=== PATIENT | female | born 1955 | race Caucasian/White ===

== ENCOUNTER → 2016-07-13 | Outpatient (CLI) | payer OTHER ==
--- NOTE | 2016-07-13 14:47 | RAD ---
DATE: 07/13/2016 EXAM: DIGITAL DIAGNOSTIC LT HISTORY: Follow-up COMPARISON: 09/04/2015 This study was interpreted with the benefit of Computerized Aided Detection (CAD). FINDINGS: The breast parenchyma shows scattered fibroglandular densities. Breast parenchyma level B. Density on the MLO view in the inferior aspect of the left breast is unchanged. IMPRESSION: Benign findings. Follow-up bilateral mammography suggested in August of this year BI-RADS CATEGORY: 2 BENIGN FINDING(S) RECOMMENDED FOLLOW-UP: 3M 3 MONTH FOLLOW-UP PQRS compliance statement: Patient information was entered into a reminder system with a target due date September 13, 2016 bilateral mammography for the next mammogram. Mammography is a sensitive method for finding small breast cancers, but it does not detect them all and is not a substitute for careful clinical examination. A negative mammogram does not negate a clinically suspicious finding and should not result in delay in biopsying a clinically suspicious abnormality. "Our facility is accredited by the [employer] Mammography [employer]."
== END | disposition home or self-care (01) ==
LOC: MAMMO 10:03
DX: R92.8 Other abnormal and inconclusive findings on diagnostic imaging of breast (principal)
CPT/HCPCS: G0206; 77065

== ENCOUNTER 2016-08-25 19:56 | Emergency (ER) | payer OTHER ==
[~2016-08-25] VITALS: Ht 175.3 cm; Wt 85.3 kg
--- NOTE | 2016-08-25 20:02 | ED.ADGEN ---
Adult General Chief Complaint Chief Complaint Burn to forearm [facility] HPI Patient is a 61 year old female who presents with a burn to her left forearm. She was making chicken and taken out of the oven and some of the juice splashed onto her left forearm. She states she ran cold water over it and put some ice on it and came to the ER. She states her tetanus shot was approximately 2 years ago. She states that it doesn't hurt that bad right now there is just a burning sensation. Review of Systems Review of Systems Constitutional: Denies fever or chills [] Eyes: Denies change in visual acuity, redness, or eye pain [] HENT: Denies nasal congestion or sore throat [] Respiratory: Denies cough or shortness of breath [] Cardiovascular: No additional information not addressed in HPI [] GI: Denies abdominal pain, nausea, vomiting, bloody stools or diarrhea [] : Denies dysuria or hematuria [] Musculoskeletal: Denies back pain or joint pain [] Integument: Denies rash or skin lesions, positive for burn to left forearm Neurologic: Denies headache, focal weakness or sensory changes [] Endocrine: Denies polyuria or polydipsia [] Allergies Allergies Allergies Coded Allergies Type Severity Reaction Last Updated Verified codeine Allergy Intermediate Vomiting 08/25/16 Yes Physical Exam Physical Exam Constitutional: Well developed, well nourished, no acute distress, non-toxic appearance. [] HENT: Normocephalic, atraumatic, bilateral external ears normal, oropharynx moist, no oral exudates, nose normal. [] Eyes: PERRLA, EOMI, conjunctiva normal, no discharge. [] Neck: Normal range of motion, no tenderness, supple, no stridor. [] Cardiovascular:Heart rate regular rhythm, no murmur [] Lungs & Thorax: Bilateral breath sounds clear to auscultation [] Abdomen: Bowel sounds normal, soft, no tenderness, no masses, no pulsatile masses. [] Skin: Warm, dry, no erythema, no rash. 8 x 5 cm burn with epithelium missing on left forearm on the palm side, it is approximately 3 cm distal to the elbow and 5 cm proximal to the wrist. It does not cross any joint lines. Back: No tenderness, no CVA tenderness. [] Extremities: No tenderness, no cyanosis, no clubbing, ROM intact, no edema. [] Neurologic: Alert and oriented X 3, normal motor function, normal sensory function, no focal deficits noted. [] Psychologic: Affect normal, judgement normal, mood normal. [] Current Patient Data Vital Signs Vital Signs Date Time Temp Pulse Resp B/P (MAP) Pulse Ox O2 Delivery O2 Flow Rate FiO2 08/25/16 20:06 97.7 84 20 97 Room Air EKG EKG [] Radiology/Procedures Radiology/Procedures [] Course & Med Decision Making Course & Med Decision Making Pertinent Labs and Imaging studies reviewed. (See chart for details) Her tetanus is up-to-date. I spoke with the [facility] Pamela , who recommends his bacitracin and with Xeroform gauze and then 4 x 4's on top of that. She states to put bacitracin directly on the Xeroform gauze. She states that she can follow-up with the [facility] burn clinic on Monday 8:45 in the morning. I gave the burn unit the patient's telephone number and also the patient the burn centers telephone number. Patient is instructed to keep an eye on the dressings and if it becomes inflamed, swollen, red or erythematous return back to ER. She's being discharged in stable condition this time with [place]. Her tetanus is up-to-date. Final Impression Final Impression 1% surface area burn of the left forearm Problems: Dragon Disclaimer Dragon Disclaimer This electronic medical record was generated, in whole or in part, using a voice recognition dictation system. KENDALL CAGLE MD Aug 25, 2016 20:02
[2016-08-25 20:06] VITALS: BP 143/93
[2016-08-25] MEDS ORDERED: HYDR-971 PO (20:49)
[2016-08-25] MEDS ORDERED: START PACK - traMADol 1 STARTPACK TABLET PO ONE (21:15)
== END 2016-08-25 21:02 | disposition home or self-care (01) ==
LOC: ER 19:56
DX: T22.012A Burn of unspecified degree of left forearm, initial encounter (principal); T31.0 Burns involving less than 10% of body surface; Z88.6 Allergy status to analgesic agent; X10.2XXA Contact with fats and cooking oils, initial encounter; Y93.G3 Activity, cooking and baking; Y99.8 Other external cause status; Y92.89 Other specified places as the place of occurrence of the external cause
CPT/HCPCS: 16020; 99284-25

== ENCOUNTER → 2018-04-23 | Outpatient (CLI) | payer OTHER ==
[~2018-04-23] MED LIST: HYDR-3165 PO
--- NOTE | 2018-04-23 13:54 | RAD ---
EXAM: Bilateral wrists, 3 views; bilateral knees, standing view; bilateral hands, 3 views; bilateral ankles, 3 views. HISTORY: Arthritis COMPARISON: None. FINDINGS: Bilateral hands and wrists: 3 views of both hands and wrists are obtained. There is minimal benign osseous excrescence along the radial aspect of the right distal radial metaphysis. There is no fracture, dislocation or subluxation. The alignment and joint spaces are unremarkable. Bilateral knees: A frontal view of both knees obtained. There is right medial compartment joint space narrowing with subchondral sclerosis. There is minimal bilateral medial and lateral compartment spurring. Bilateral ankles: 3 views of both ankles are obtained. There is no fracture, dislocation or subluxation. No osteochondral lesion is seen. There are small bilateral plantar spurs. There is enthesopathy at the bilateral Achilles tendon insertions. IMPRESSION: 1. 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 2. Small bilateral plantar spurs. 3. No acute osseous finding. Electronically signed by: Annetta Jones MD (04/23/2018 1:49 PM) [facility]
== END | disposition home or self-care (01) ==
LOC: DXRAD 12:19
PROVIDERS: ATTEND Family Medicine
DX: M17.0 Bilateral primary osteoarthritis of knee (principal); M77.52 Other enthesopathy of left foot and ankle; M77.51 Other enthesopathy of right foot and ankle; M76.892 Other specified enthesopathies of left lower limb, excluding foot; M76.891 Other specified enthesopathies of right lower limb, excluding foot; D16.11 Benign neoplasm of short bones of right upper limb
CPT/HCPCS: 73110; 73130; 73565; 73610

== ENCOUNTER → 2018-06-11 | Outpatient (CLI) | payer OTHER ==
--- NOTE | 2018-06-11 15:48 | RAD ---
DATE: 06/11/2018 EXAM: Bilateral screening mammogram. HISTORY: Routine screening COMPARISON: Previous mammogram from 2017 and 2016 This study was interpreted with the benefit of Computerized Aided Detection (CAD). FINDINGS: Breast density category C: The breasts are heterogeneously dense which may obscure small masses. The skin and nipples are within normal limits. No suspicious calcifications, spiculated mass or area of architectural distortion. IMPRESSION: Benign findings. Continue annual screening. BI-RADS CATEGORY: 2 BENIGN FINDING(S) RECOMMENDED FOLLOW-UP: 12M 12 MONTH FOLLOW-UP Mammography is a sensitive method for finding small breast cancers, but it does not detect them all and is not a substitute for careful clinical examination. A negative mammogram does not negate a clinically suspicious finding and should not result in delay in biopsying a clinically suspicious abnormality. "Our facility is accredited by the [employer] Mammography Program."
== END | disposition home or self-care (01) ==
LOC: MAMMO 14:58
PROVIDERS: ATTEND Family Medicine
DX: Z12.31 Encounter for screening mammogram for malignant neoplasm of breast (principal)
CPT/HCPCS: 77067

== ENCOUNTER → 2019-08-09 | Outpatient (CLI) | payer MEDICARE, MEDICAID ==
[~2019-08-09] MED LIST changes: +AMLO5TAB10 PO; +ASCO500C9 PO; +CYAN50008 PO; +ECHI400C12 PO; +ELDE1CAP PO; +EZET10TA20 PO; +FLUT1DIS5 IH; +HYDR-2145 PO; +LOSA100T14 PO; +METF500T16 PO; +OMEG-117 PO; +OMEP20TA63 PO; +ZINC50TA39 PO
== END | disposition home or self-care (01) ==
LOC: LAB 09:12
PROVIDERS: ATTEND Registered Nurse
DX: Z03.818 Encounter for observation for suspected exposure to other biological agents ruled out (principal)
CPT/HCPCS: 87635

== ENCOUNTER → 2019-08-13 | Day surgery (SDC) | payer MEDICARE, MEDICAID ==
[~2019-08-13] MED LIST changes: +BALANCED SALT IRRIG OPHTH SOLN 15 ML BOTTLE. IRR ONE; +CATARACT OPHTH GEL 0.5 ML SYRINGE. OD ONE; +CHONDROIT-SOD-HYALURONATE KIT. OD ONE; +EPINEPHrine AMPULE 0.5 MG in BALANCED SALT IRRIG SOLN PLUS 500 ML IO ONE; +ERYTHROMYCIN 0.5% OPHTH OINTMENT 1GM TUBE. OD ONE; +HYALURONIDASE 75UNITS in LIDOCAINE 2% PF OPHTH 10 ML SYRINGE. OD ONE; +HYALURONIDASE 75UNITS in LIDOCAINE 2% PF OPHTH 10 ML SYRINGE. ONE; +IPRATRPIUM/ALBUTEROL 0.5/2.5MG 3 ML NEBU. NEB PRN; +IV RINGERS SOLUTION,LACTATED 1,000 ML IV SCH; +KETOROLAC TROMETHAMINE 0.5% OPHTH SOLUTION BOTTLE. OD SCH; +KETOROLAC TROMETHAMINE 0.5% OPHTH SOLUTION BOTTLE. ONE; +MOXIFLOXACIN 0.5% OPHTH SOLUTION 3ML BOTTLE. OD SCH; +POVIDONE-IODINE 5% OPHTH SOLUTION 30ML BOTTLE. OD ONE; +PROPOFOL 10,000 MCG/ML (20ML) VIAL IV ONE; +TETRACAINE 0.5% OPHTH SOLUTION 4ML BOTTLE. OD ONE; +TETRACAINE 0.5% OPHTH SOLUTION 4ML BOTTLE. OU ONE; +prednisoLONE ACETATE 1% OPHTH SUSPENSION 5ML BOTTLE. OD SCH; +prednisoLONE ACETATE 1% OPHTH SUSPENSION 5ML BOTTLE. ONE
[2019-08-13] MEDS: MOXIFLOXACIN 0.5% OPHTH SOLUTION 3ML BOTTLE. OD SCH ×3 (07:20→07:32)
--- NOTE | 2019-08-13 08:56 | PDOC4 ---
Phaco IOL/Cataract/OD Date of Procedure: August 13, 2019 Preoperative Diagnosis: Preoperative Diagnosis: Senile Cataract, Right Eye Postoperative Diagnosis: Senile Cataract, Right Eye Anesthesia: Local with monitored anesthesia care Surgeon: Magdiel Rivera D.O. Procedure: Right Phacoemulsification with Intraocular Lens Implant Findings: Senile Cataract Indications: Worsening vision interfering with patient's lifestyle Narrative: After discussing the risks, complications and alternatives, including but not limited to loss of vision, infection, bleeding, swelling, anesthetic reaction, capsule rupture with vitreous loss, etc., the patient was given a peribulbar block under mild IV sedation and cardiac monitoring. Pressure was applied to the eye for approximately 10 minutes. The patient was transferred to the main operating room and was prepped and draped in the usual sterile fashion and positioned under the microscope. A lid speculum was placed. A temporal clear corneal incision was made with a keratome and viscoelastic was injected into the eye. A side port incision was made. A continuous tear capsulorrhexis was performed, then hydrodissection was accomplished with balanced salt solution. The phacoemulsification needle was placed in the eye and the nucleus was emulsified. The nucleus was found to be very hard, requiring significant phaco time and power. The remaining cortical material was removed with the irrigation and aspiration apparatus. The capsule was polished as needed. The posterior capsule was noted to be clean and intact. Viscoelastic was injected into the eye inflating the capsular bag. An intraocular lens was injected into the eye, unfolding as desired and was positioned in the capsular bag. The viscoelastic was aspirated from the eye. The wound edges were hydrated with balanced salt solution and there were no leaks. Viscoelastic was injected over the limbal incisions. Antibiotic and steroid were placed on the eye. The lid speculum was removed, the eye patched shut and a Aggarwal shield applied. There were no complicati ons and the patient was taken to the PACU in good condition. MAGDIEL RIVERA DO August 13, 2019 08:56
[2019-08-13 09:04] VITALS: BP 163/78
== END | disposition home or self-care (01) ==
LOC: SURG 06:42
PROVIDERS: ATTEND Ophthalmology
DX: H25.11 Age-related nuclear cataract, right eye (principal); I10 Essential (primary) hypertension; J45.909 Unspecified asthma, uncomplicated; K21.9 Gastro-esophageal reflux disease without esophagitis; Z88.6 Allergy status to analgesic agent; Z90.49 Acquired absence of other specified parts of digestive tract; Z98.51 Tubal ligation status
CPT/HCPCS: 66984; J0171; J2704; V2632

== ENCOUNTER → 2019-09-03 | Day surgery (SDC) | payer MEDICARE, MEDICAID ==
[~2019-09-03] MED LIST changes: +AMLO-186 PO; -AMLO5TAB10 PO; -CATARACT OPHTH GEL 0.5 ML SYRINGE. OD ONE; +CATARACT OPHTH GEL 0.5 ML SYRINGE. OS ONE; -CHONDROIT-SOD-HYALURONATE KIT. OD ONE; +CHONDROIT-SOD-HYALURONATE KIT. OS ONE; -ERYTHROMYCIN 0.5% OPHTH OINTMENT 1GM TUBE. OD ONE; +ERYTHROMYCIN 0.5% OPHTH OINTMENT 1GM TUBE. OS ONE; -HYALURONIDASE 75UNITS in LIDOCAINE 2% PF OPHTH 10 ML SYRINGE. OD ONE; -HYALURONIDASE 75UNITS in LIDOCAINE 2% PF OPHTH 10 ML SYRINGE. ONE; +HYALURONIDASE 75UNITS in LIDOCAINE 2% PF OPHTH 10 ML SYRINGE. OS ONE; -KETOROLAC TROMETHAMINE 0.5% OPHTH SOLUTION BOTTLE. OD SCH; +KETOROLAC TROMETHAMINE 0.5% OPHTH SOLUTION BOTTLE. OS SCH; -MOXIFLOXACIN 0.5% OPHTH SOLUTION 3ML BOTTLE. OD SCH; +MOXIFLOXACIN 0.5% OPHTH SOLUTION 3ML BOTTLE. OS SCH; -POVIDONE-IODINE 5% OPHTH SOLUTION 30ML BOTTLE. OD ONE; +POVIDONE-IODINE 5% OPHTH SOLUTION 30ML BOTTLE. OS ONE; -TETRACAINE 0.5% OPHTH SOLUTION 4ML BOTTLE. OD ONE; +TETRACAINE 0.5% OPHTH SOLUTION 4ML BOTTLE. OS ONE; -prednisoLONE ACETATE 1% OPHTH SUSPENSION 5ML BOTTLE. OD SCH; +prednisoLONE ACETATE 1% OPHTH SUSPENSION 5ML BOTTLE. OS SCH
[2019-09-03] MEDS: MOXIFLOXACIN 0.5% OPHTH SOLUTION 3ML BOTTLE. OS SCH ×3 (07:32→07:43)
--- NOTE | 2019-09-03 08:31 | PDOC4 ---
Phaco IOL/Cataract/OS Date of Procedure: Sep 03, 2019 Preoperative Diagnosis: Senile Cataract, Left Eye Postoperative Diagnosis: Senile Cataract, Left Eye Anesthesia: Local (Block) with monitored anesthesia care Surgeon: Magdiel Rivera D.O. Procedure: Left Phacoemulsification with Intraocular Lens Implant Findings: Senile Cataract Indications: Worsening vision interfering with patient's lifestyle Narrative: After discussing the risks, complications and alternatives, including but not limited to loss of vision, infection, bleeding, swelling, anesthetic reaction, capsule rupture with vitreous loss, etc., the patient was given a peribulbar block under mild IV sedation and cardiac monitoring. Pressure was applied to the eye for approximately 10 minutes. The patient was transferred to the main operating room and was prepped and draped in the usual sterile fashion and positioned under the microscope. A lid speculum was placed. A temporal clear corneal incision was made with a keratome and viscoelastic was injected into the eye. A side port incision was made. A continuous tear capsulorrhexis was performed, then hydrodissection was accomplished with balanced salt solution. The phacoemulsification needle was placed in the eye and the nucleus was emulsified. The remaining cortical material was removed with the irrigation and aspiration apparatus. The capsule was polished as needed. The posterior capsule was noted to be clean and intact. Viscoelastic was injected into the eye inflating the capsular bag. An intraocular lens was injected into the eye, unfolding as desired and was positioned in the capsular bag. The viscoelastic was aspirated from the eye. The wound edges were hydrated with balanced salt solution and there were no leaks. Viscoelastic was injected over the limbal incisions. Antibiotic and steroid were placed on the eye. The lid speculum was removed, the eye patched shut and a Aggarwal shield applied. There were no complications and the patient was taken to the PACU in good condition. MAGDIEL RIVERA DO Sep 03, 2019 08:31
[2019-09-03 10:51] VITALS: BP 149/81
== END ==
LOC: SURG 06:28
PROVIDERS: ATTEND Ophthalmology
DX: H25.12 Age-related nuclear cataract, left eye (principal); I10 Essential (primary) hypertension; E66.9 Obesity, unspecified; Z68.32 Body mass index [BMI] 32.0-32.9, adult; Z90.49 Acquired absence of other specified parts of digestive tract; Z87.39 Personal history of other diseases of the musculoskeletal system and connective tissue; Z98.51 Tubal ligation status
CPT/HCPCS: 66984; J0171; J2704; V2632

== ENCOUNTER → 2019-10-07 | Outpatient (CLI) | payer MEDICARE, MEDICAID ==
[2019-09-03 10:51] VITALS: BP 149/81
[~2019-10-07] MED LIST changes: -AMLO-186 PO; +AMLO5TAB10 PO; -BALANCED SALT IRRIG OPHTH SOLN 15 ML BOTTLE. IRR ONE; -CATARACT OPHTH GEL 0.5 ML SYRINGE. OS ONE; -CHONDROIT-SOD-HYALURONATE KIT. OS ONE; -EPINEPHrine AMPULE 0.5 MG in BALANCED SALT IRRIG SOLN PLUS 500 ML IO ONE; -ERYTHROMYCIN 0.5% OPHTH OINTMENT 1GM TUBE. OS ONE; -HYALURONIDASE 75UNITS in LIDOCAINE 2% PF OPHTH 10 ML SYRINGE. OS ONE; -IPRATRPIUM/ALBUTEROL 0.5/2.5MG 3 ML NEBU. NEB PRN; -IV RINGERS SOLUTION,LACTATED 1,000 ML IV SCH; -KETOROLAC TROMETHAMINE 0.5% OPHTH SOLUTION BOTTLE. ONE; -KETOROLAC TROMETHAMINE 0.5% OPHTH SOLUTION BOTTLE. OS SCH; -MOXIFLOXACIN 0.5% OPHTH SOLUTION 3ML BOTTLE. OS SCH; -POVIDONE-IODINE 5% OPHTH SOLUTION 30ML BOTTLE. OS ONE; -PROPOFOL 10,000 MCG/ML (20ML) VIAL IV ONE; -TETRACAINE 0.5% OPHTH SOLUTION 4ML BOTTLE. OS ONE; -TETRACAINE 0.5% OPHTH SOLUTION 4ML BOTTLE. OU ONE; -prednisoLONE ACETATE 1% OPHTH SUSPENSION 5ML BOTTLE. ONE; -prednisoLONE ACETATE 1% OPHTH SUSPENSION 5ML BOTTLE. OS SCH
--- NOTE | 2019-10-07 16:37 | RAD ---
BILATERAL SCREENING MAMMOGRAM History: Routine screening. Comparison: 06/11/2018, 09/04/2015, 08/11/2014, 01/04/2013. Technique: Routine bilateral digital mammogram views were obtained. Findings: Breast Tissue Density B : There are scattered areas of fibroglandular density. There are no dominant masses, suspicious microcalcifications, or architectural distortion. IMPRESSION: No mammographic evidence of malignancy. Recommend routine screening. BI-RADS category 1: Negative. The images were reviewed with computer aided detection. Patient information is entered into the reminder system with a target due date for the next screening mammogram. Mammography is the most sensitive method for finding small breast cancers, but it does not detect them all and is not a substitute for careful clinical examination. A negative mammogram does not negate a clinically suspicious finding and should not result in delay in biopsying a clinically suspicious abnormality. "Our facility is accredited by the [employer] Mammography [employer]." Electronically signed by: Dallin Mattson MD (10/07/2019 4:34 PM) [id number]
== END ==
LOC: MAMMO 08:42
PROVIDERS: ATTEND Family Medicine
DX: Z12.31 Encounter for screening mammogram for malignant neoplasm of breast (principal)
CPT/HCPCS: 77067

== ENCOUNTER → 2020-09-04 | Outpatient (CLI) | payer MEDICARE, MEDICAID ==
[2019-09-03 10:51] VITALS: BP 149/81
[~2020-09-04] MED LIST changes: +AMLO-186 PO; -AMLO5TAB10 PO; -CYAN50008 PO; +CYAN50009 PO; +IOHEXOL 240 MG/ML 50ML VIAL. PO ONE; +IOHEXOL 300 MG/ML 75 ML VIAL. IV ONE
--- NOTE | 2020-09-04 09:12 | RAD ---
CT abdomen pelvis with contrast dated 09/04/2020. No comparison available. Clinical indication: Epigastric pain. TECHNIQUE: Contiguous axial imaging the abdomen pelvis performed after the administration of 5 cc 70. One or more of the following individualized dose reduction techniques were utilized for this examinat ion: 1. Automated exposure control 2. Adjustment of the mA and/or kV according to patient size 3. Use of iterative reconstruction technique. FINDINGS: Limited images of lung bases are clear. Heart size is upper limits of normal. No pleural or pericardi al effusion. Liver is of diffuse low density compatible with fatty infiltration. No apparent mass. No biliary duct al dilatation. Gallbladder surgically absent. Spleen is normal in size. Pancreas, adrenal glands and kidneys are unremarkable. No hydronephrosis. T here are low-density foci at each kidney, likely cysts. Partially opacified GI tract normal in caliber and contour. There is a fairly short zone of focal bow el wall thickening and mild hazy inflammatory stranding involving the sigmoid colon. This is best see n on images 59 through 63 that extends from about 10 cm in length. There are a few scattered divertic eduardo more proximally in the descending colon. No localized perforation or abscess. Appendix normal in caliber. No lymphadenopathy or ascites. Abdominal aorta is normal in caliber. Small periumbilical paige tral hernia containing only fat. Images of pelvis show nondistended urinary bladder. There is thickened appearance of the endometrium measuring up to 1.5 cm. Adnexa are unremarkable. No adenopathy or ascites. Bone windows show no acute findings. Multilevel spondylosis. IMPRESSION: 1. There is a short segment zone of wall thickening and pericolonic inflammatory changes involving th e sigmoid colon. This could be related to infectious or inflammatory enteritis or early diverticuliti s. An underlying mass would be considered less likely. Correlation with colonoscopy may be warranted. 2. Otherwise no acute findings. 3. There is thickened appearance of the endometrium, abnormal in a postmenopausal female. This could be related to hyperplasia, polyps or malignancy. If indicated, pelvic ultrasound could better evaluat e. 4. Small umbilical hernia containing only fat. 5. Mild fatty infiltration the liver. Electronically signed by: Omero Griffin MD (09/04/2020 9:10 AM) [id number]
== END ==
LOC: CT 07:43
PROVIDERS: ATTEND Family Medicine
DX: K76.0 Fatty (change of) liver, not elsewhere classified (principal); K42.9 Umbilical hernia without obstruction or gangrene; R10.13 Epigastric pain
CPT/HCPCS: 74177; Q9967

== ENCOUNTER → 2020-09-08 | Day surgery (SDC) | payer MEDICARE, MEDICAID ==
[~2020-09-08] MED LIST changes: -IOHEXOL 240 MG/ML 50ML VIAL. PO ONE; -IOHEXOL 300 MG/ML 75 ML VIAL. IV ONE; +IPRATRPIUM/ALBUTEROL 0.5/2.5MG 3 ML NEBU. NEB PRN; +IV RINGERS SOLUTION,LACTATED 1,000 ML IV SCH; +LIDOCAINE 2% PF 5 ML VIAL. ONE; +MIDAZOLAM HCL PF 2 MG/2 ML VIAL. IV ONE; +ONDANSETRON PF 4 MG/2 ML VIAL. IV PRN; +PROPOFOL 10,000 MCG/ML (20ML) VIAL IV ONE
[2020-09-08 12:02] VITALS: BP 189/98
--- NOTE | 2020-09-10 17:43 | PATHOLOGY ---
[facility] Accession Number: [id number] . 01 Material submitted: . PART A: sigmoid colon - SIGMOID POLYP PART B: splenic flexure - COLITIS BIOPSY AT SPLENIC FLEXURE AND DESCENDING COLON. Modifiers: descending . 01 Clinical history: . SCREENING COLONOSCOPY . 02 Diagnosis: A. Colon biopsy, sigmoid polyp: - Polypoid segment of colonic mucosa with submucosal edema. . B. Colonic mucosa, splenic flexure and descending colon biopsies: - Ischemic colitis, focal. LBQ 09/10/2020 1309 Local . 02 Comment: Sections of the sigmoid polyp biopsy reveal a polypoid segment of colonic mucosa showing submucosal edema. There are no adenomatous changes or evidence of malignancy. . Sections of the splenic flexure and descending colon biopsies reveal multiple segments of colonic mucosa. There are several foci showing shrunken colonic glands and drop out of colonic glands with associated hemorrhage and acute inflammation, consistent with foci of acute ischemic colitis. There is no evidence of a chronic destructive colitis or acute infectious colitis. (JPM/db; 09/10/2020) . 02 Electronically signed: . Keon Awan MD, Pathologist NPI- [id number] . 01 Gross description: . A. Received in formalin labeled "Schmoldt, Khloe and sigmoid polyp". Received is a garduno-brown soft tissue fragment measuring 0.4 x 0.4 x 0.3 cm. The specimen is entirely submitted in cassette A1. . B. Received in formalin labeled "Schmoldt, Khloe and colitis biopsy at splenic flexure and descending colon". Received are multiple garduno-brown soft tissue fragments ranging from 0.2-0.3 cm. The specimen is entirely submitted in cassette B1.(BLJ; 09/09/2020) . BLJ/BLJ 09/09/2020 2207 Local . 02 Pathologist provided ICD-10: K55.9, Z12.11 . 02 CPT . 455616, 004345 Specimen Comment: A courtesy copy of this report has been sent to [phone], [phone] Specimen Comment: [id number] Specimen Comment: Report sent to / DR WALDEN Performed at: 01 [facility] [address], [place] [id number] MD Chirag Cabral MD Phone: [phone] Performed at: 02 [facility] [address] [place], [place] [id number] MD Keon Awan MD Phone: [phone]
== END | disposition home or self-care (01) ==
LOC: SURG 09:52
PROVIDERS: ATTEND Internal Medicine Gastroenterology
DX: Z12.11 Encounter for screening for malignant neoplasm of colon (principal); K55.9 Vascular disorder of intestine, unspecified; K63.5 Polyp of colon; K63.89 Other specified diseases of intestine; K57.30 Diverticulosis of large intestine without perforation or abscess without bleeding; K21.9 Gastro-esophageal reflux disease without esophagitis; E78.00 Pure hypercholesterolemia, unspecified; I10 Essential (primary) hypertension; E11.9 Type 2 diabetes mellitus without complications; M19.90 Unspecified osteoarthritis, unspecified site; Z79.899 Other long term (current) drug therapy; Z79.84 Long term (current) use of oral hypoglycemic drugs; Z90.49 Acquired absence of other specified parts of digestive tract; Z98.51 Tubal ligation status
CPT/HCPCS: 45380; 45385; 88305; J2001; J2704; J7120

== ENCOUNTER → 2020-10-02 | Outpatient (CLI) | payer MEDICARE, MEDICAID ==
[2020-09-08 12:02] VITALS: BP 189/98
[~2020-10-02] MED LIST changes: -IPRATRPIUM/ALBUTEROL 0.5/2.5MG 3 ML NEBU. NEB PRN; -IV RINGERS SOLUTION,LACTATED 1,000 ML IV SCH; -LIDOCAINE 2% PF 5 ML VIAL. ONE; -MIDAZOLAM HCL PF 2 MG/2 ML VIAL. IV ONE; -ONDANSETRON PF 4 MG/2 ML VIAL. IV PRN; -PROPOFOL 10,000 MCG/ML (20ML) VIAL IV ONE
--- NOTE | 2020-10-02 17:39 | RAD ---
US PELVIS W/TV History: Reason: FIBROIDS / Spl. Instructions: / History: Postmenopausal Comparison: None Technique: Grayscale and color Doppler imaging of the pelvis was performed using transabdominal and t ransvaginal technique. Findings: The uterus measures 10.8 x 6.6 x 5.7 cm. Heterogeneous myometrial lesion measures 2.4 x 2.0 x 2.4 cm. Heterogeneous thickened endometrium measures up to 2.0 cm. Nabothian cysts noted. Bilateral ovaries not identified due to positioning and overlying structures. IMPRESSION: 1. Heterogeneous thickened endometrium, may represent endometrial hyperplasia although endometrial c arcinoma or polyp is possible. Recommend further clinical evaluation and biopsy if indicated. 2. Heterogeneous myometrial lesion, likely fibroid. Electronically signed by: Ed Yu DO (10/02/2020 5:37 PM) [id number]
== END ==
LOC: US 08:25
PROVIDERS: ATTEND Family Medicine
DX: R93.89 Abnormal findings on diagnostic imaging of other specified body structures (principal); D21.9 Benign neoplasm of connective and other soft tissue, unspecified
CPT/HCPCS: 76830; 76856

== ENCOUNTER → 2020-10-23 | Outpatient (CLI) | payer MEDICARE, MEDICAID ==
[2020-09-08 12:02] VITALS: BP 189/98
--- NOTE | 2020-10-23 14:40 | RAD ---
PROCEDURE: MG 2D BILAT SCREENING HISTORY: The patient is 65 years old and is seen for Reason: SCREENING / Spl. Instructions: / Histor y: . COMPARISON: October 07, 2019, June 11, 2018 and July 13, 2016 TECHNIQUE: CC and MLO views of both breasts were obtained. Images were processed by the [employer] computer-aided detection system. DENSITY: There are scattered fibroglandular densities. FINDINGS: Right breast: Unchanged well-circumscribed mass within the right medial inferior breast. No new suspi cious microcalcifications, mass or architectural distortion. Left breast: Unchanged well-circumscribed mass within the left medial breast. No suspicious microcalc ification, mass or architectural distortion. IMPRESSION: Negative. No evidence of malignancy. Recommend annual screening mammograms per [employer] [employer] guidelines. She will be due in one year. BI-RADS category 2 Benign Patient entered into a reminder system for annual screening mammogram. Electronically signed by: Ed Yu DO (10/23/2020 2:38 PM) [id number]
== END ==
LOC: MAMMO 11:17
PROVIDERS: ATTEND Family Medicine
DX: Z12.31 Encounter for screening mammogram for malignant neoplasm of breast (principal)
CPT/HCPCS: 77067